=== PATIENT | male | born 1980 | race Caucasian/White ===

== ENCOUNTER 2017-07-12 13:38 | Day surgery (SDC) | END 2017-07-12 18:58 | disposition home or self-care (01) ==

== ENCOUNTER 2018-10-04 05:59 | Day surgery (SDC) | payer OTHER ==
[2018-10-04] VITALS (14 sets, daily range): BP systolic 116–154; BP diastolic 58–92; PULSE 58–102; RESP 12–30; Ht 185.4 cm; Wt 116.7 kg
[~2018-10-04] VITALS: Ht 185.4 cm; Wt 116.7 kg
[2018-10-04] MEDS ORDERED: GABA-528 PO (06:53)
[2018-10-04] MEDS ORDERED: ROPIVACAINE 0.5 % 30 ML VIAL ONE (07:00)
[2018-10-04] MEDS ORDERED: NEOMYC/POLYMYX/BACIT 30 GM OINT ONE (07:01)
[2018-10-04] MEDS ORDERED: POLYMYXIN/BACITRACIN 1L IRRIG ONE (07:01)
--- NOTE | 2018-10-04 07:13 | PREAC ---
Date/Time of Note Date/Time of Note DATE: 10/04/18 TIME: 07:11 Anesthesia Eval and Record Evaluation Time Pre-Procedure Interview DATE: 10/04/18 TIME: 07:11 Age 38 Sex male NPO: 8 hrs Preoperative diagnosis left acl tear Planned procedure left knee acl repair, left knee arthroscopy and meniscectomy Past Medical History Past Medical History: Includes Cardio: HTN Surgery & Anesthesia Issues No known issue Meds Anticoagulation: No Beta Kelvin within 24 hr: No Reason Beta Kelvin not given: Pt. not on B-Kelvin Reported Medications Gabapentin* (Gabapentin*) 800 Mg Tablet, 800 MG PO QID, #90 TAB 10/04/18 Meds reviewed: Yes Allergies Coded Allergies: No Known Drug Allergies (Unverified Allergy, Unknown, 10/04/18) Allergies Reviewed: Yes Labs/Studies Labs Reviewed: Reviewed by anesthesiologist test: N/A Pre-procedure Exam Last vitals Vital Signs Date Temp Pulse Resp B/P (MAP) Pulse Ox O2 O2 Flow FiO2 Time Delivery Rate 10/04/18 98.3 58 18 154/89 97 06:54 (110) 10/04/18 Room Air 06:51 Airway: Adequate mouth opening, Adequate thyromental dist Mallampati: Mallampati I Teeth: Normal Lung: Normal Heart: Normal ASA Physical Status ASA physical status: 2 Emergency: None Planned Anesthetic General/MAC: LMA Nerve block: Femoral (left) Planned Pain Management Single shot nerve block, Parenteral pain med Pre-operative Attestations Prior to commencing anesthesia and surgery, the patient was re-evaluated, there was verification of: *The patient's identity *The results of appropriate recent lab work and preoperative vital signs *The above evaluation not changing prior to induction *Anesthetic plan, risk benefits, alternative and complications discussed with patient/family; questions answered; patient/family understands, accepts and wishes to proceed. KEIRY HARDY Oct 04, 2018 07:13
[2018-10-04] MEDS ORDERED: SEVOFLURANE 15 MIN ONE (07:16)
[2018-10-04] MEDS ORDERED: MIDAZOLAM 1 MG/ML 2 ML INJ ONE (07:16)
[2018-10-04] MEDS ORDERED: BUPIVACAINE 0.5% (SDV) 30 ML INJ ONE (07:18)
[2018-10-04] MEDS ORDERED: PROPOFOL 20 ML ONE (07:20)
[2018-10-04] MEDS ORDERED: ROCURONIUM 50 MG INJ ONE (07:21)
[2018-10-04] MEDS ORDERED: LIDOCAINE 2% (SDV) 5 ML INJ ONE (07:21)
--- NOTE | 2018-10-04 07:42 | HPN ---
Date/Time of Note Date/Time of Note DATE: 10/04/18 TIME: 07:42 Interval H&P Admission Note Pt. seen H&P reviewed: No system changes DARIO SAMPSON MD Oct 04, 2018 07:42
[2018-10-04] MEDS ORDERED: CEFAZOLIN 1 GM INJ ONE (07:54)
[2018-10-04] MEDS ORDERED: DEXAMETHASONE 4 MG/ML 5 ML INJ ONE (08:00)
[2018-10-04] MEDS ORDERED: morphine 2 MG INJ IV PRN (08:00)
[2018-10-04] MEDS ORDERED: KETOROLAC 30 MG INJ IV SCH (08:00)
[2018-10-04] MEDS ORDERED: morphine 10 MG INJ ONE (08:01)
[2018-10-04] MEDS ORDERED: LABETALOL HCL 20MG INJ ONE (09:50)
[2018-10-04] MEDS ORDERED: ONDANSETRON 4 MG INJ ONE (10:06)
[2018-10-04] MEDS ORDERED: NEOSTIGMINE 3 MG/3 ML SYRINGE ONE (10:36)
[2018-10-04] MEDS ORDERED: GLYCOPYRROLATE 0.4 MG INJ ONE (10:36)
--- NOTE | 2018-10-04 10:47 | PAC ---
Date/Time of Note Date/Time of Note DATE: 10/04/18 TIME: 10:47 Post-Anesthesia Notes Post-Anesthesia Note Last documented vital signs Vital Signs Date Temp Pulse Resp B/P (MAP) Pulse Ox O2 O2 Flow FiO2 Time Delivery Rate 10/04/18 98.3 58 18 154/89 97 1047 (110) 10/04/18 Room Air 06:51 Activity: WNL Respiratory function: WNL Cardiovascular function: WNL Mental status: Baseline Pain reasonably controlled: Yes Hydration appropriate: Yes Nausea/Vomiting absent: Yes KEIRY HARDY Oct 04, 2018 10:47
[2018-10-04] MEDS ORDERED: DIPHENHYDRAMINE 50 MG INJ IV PRN (11:00)
[2018-10-04] MEDS ORDERED: LABETALOL HCL 20MG INJ IV PRN (11:00)
[2018-10-04] MEDS ORDERED: ONDANSETRON 4 MG INJ IV PRN (11:00)
[2018-10-04] MEDS ORDERED: METOCLOPRAMIDE 10 MG INJ IV PRN (11:00)
[2018-10-04] MEDS ORDERED: hydrALAzine 20 MG INJ IV PRN (11:00)
[2018-10-04] MEDS ORDERED: EPHEDrine 25 MG/5 ML SYG IV PRN (11:00)
[2018-10-04] MEDS ORDERED: HYDROmorphONE 1 MG/5 ML IV SYRINGE IV PRN ×3 (11:00)
[2018-10-04] MEDS ORDERED: OXYCODONE/ACETAMINOPHEN (5/325) TAB PO PRN ×2 (11:00)
[2018-10-04] MEDS ORDERED: FENTAnyl 50 MCG/ML VIAL IV PRN ×3 (11:00)
[2018-10-04] MEDS ORDERED: MEPERIDINE 25 MG INJ IV PRN (11:00)
[2018-10-04] MEDS ORDERED: KETOROLAC 30 MG INJ IV PRN (11:00)
[2018-10-04] MEDS ORDERED: ALBUTEROL 0.083% (NEB) 2.5 MG/3 ML AMP HHN PRN (11:00)
[2018-10-04] MEDS ORDERED: GABAPENTIN 400 MG CAP PO ONE (12:00)
--- NOTE | 2018-10-04 12:07 | OPR ---
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 Operation/Procedure Performed Left knee arthroscopy with ACL reconstruction with tibialis anterior allograft Left knee arthroscopy with partial lateral meniscectomy Left knee arthroscopy with loose body removal, approximate 1.5 cm Left knee arthroscopy with chondroplasty of the patella femoral compartment and lateral compartment Surgeon Dario Sampson MD Pump Assembler CARLA Harkins Anesthesia Type: general, other (fascia iliacus block) Anesthesiologist: KEIRY HARDY Tourniquet Time: 75 min at 250mmHg Estimated Blood Loss: minimal Transfusion none Specimen None Grafts/Implants Mitek adjustable loop button Mitek bioIntrafix 7-9 Complications none Pt Condition Post Procedure: stable Disposition: PACU Indications Indications The patient is a 38year-old male with a prolonged history of Left knee giving way after playing soccer. He has had continued episodes of instability with catching and clicking over the past several months. The patient has restored their range of motion and is now brought to the operating room for ACL reconstruction, possible partial medial and lateral meniscectomy versus medial and lateral meniscal repair, chondroplasty and debridement. Risk Note: The risks, benefits, and alternatives of surgery were discussed with the patient. The risks included but were not limited to infection, bleeding, damage to vessels and nerves, loss of motion, continued pain, re-tear of the meniscus, deep venous thrombosis, and complications due to anesthesia including nerve injury, myocardial infarction, stroke, , etc. The patient stated understanding of the nature of the surgical procedure and gave written and verbal consent to proceed Procedure Description Patient was met in the preoperative holding area and the correct operative extremity was confirmed with both patient and consent. Patient was given preoperative fascial iliacus block was placed. Patient was brought to the operative theater and placed supine on the operative table. Patient was given general anesthesia and preoperative antibiotics. The left lower extremity was examined under anesthesia. Range of motion was 0 degrees of extension to 135 degrees of flexion. There was no varus or valgus or posterolateral instability. He had no instability to varus or valgus stress at 0 or 30 degrees. He had a 2+ Goldie and drawer with a positive pivot shift The left lower extremity was then prepped and draped in the usual fashion. A tourniquet was placed proximally on the thigh over a bias stockinette. A standard anterolateral parapatellar stab wound was created. The knee joint was entered with a blunt-tipped obturator, followed by the 30-degree video arthroscope. An anteromedial portal was established under arthroscopic control. A routine arthroscopic survey was performed. The suprapatellar pouch was unremarkable. The undersurface of the patella was well-preserved. The patella appeared to track centrally within the trochlear groove. There was grade I chondromalacia under the lateral patella facet. The trochlea no chondromalacia. The medial and lateral gutters were inspected there is no loose body seen in the medial or lateral gutter.. There was no hypertrophied plica. The popliteal hiatus was entered and was unremarkable. The lateral compartment was entered. The lateral femoral condyle exhibited grade 2/3 chondromalacia and the lateral tibial plateau showed grade 2/3 chondromalacia. There was no chondromalacia adjacent to the notch. Lateral meniscus was shown to be torn at the mid body extending to the posterior horn. It was torn in a way that had complete degeneration and shredding of the meniscus and was essentially a segmental tear with a complete displacement from the capsule at the horn to the mid body that was found to be completely degenerative and unrepairable. The intercondylar notch was visualized. There was a large loose body found in the medial compartment at the border of the intercondylar notch that was removed and measuring approximately 1.5 cm. The anterior cruciate ligament was torn from its femoral origin. Posteromedially there was no loose body seen. The posterior cruciate ligament was visualized and appeared intact although slightly strained. The medial compartment was entered. The articular surfaces of the medial compartment was shown to have no evidence of chondromalacia and the meniscus was shown to be stable and intact. Attention was turned to reconstruction of the anterior cruciate ligament. Following exsanguination with an Esmarch bandage the tourniquet was inflated to 250 mm of mercury. Using a motorized shaver a limited notchplasty was performed, exposing the lateral wall and roof of the notch, identifying the [id number] position. The stump of the anterior cruciate ligament was debrided. A Vector guide was placed intra-articularly between the tibial spines in line with the anterior horn of the lateral meniscus. A Chase wire was then inserted into the knee through a 2 cm incision made over the proximal medial tibia. The incision was deepened through the subcutaneous tissue with subperiosteal dissection achieved. Bleeding points were coagulated with the Bovie electrocautery. The tibialis anterior allograft was prepped to create a size 9 graft on both the femoral and tibial side. Tibial drilling was then carried out first with a 6.5 mm followed by a 9 mm cylindrical reamer with the guide set at 55 degrees. Via an accessory medial portal, the Beath pin was drilled out the femoral cortex and skin with the knee in hyperflexion. The femoral tunnel was then created, with a spade tip guidewire, Depth-gauging confirmed a condyle length of 38 mm. Then reaming proceeded, with a 9 mm drill to a depth of 30 mm. A adjustable rigid loop Mitek button was selected. The graft was inserted intra -articularly and the Mitek button was deployed. The graft was cycled for 20 cycles with 25 pounds of force to pre-load the graft. Tibial fixation was carried out using a 7-9 Bio-IntraFix in 10 degrees of flexion with a posterior drawer. At the completion of surgery the patient had a firm stable Goldie. There was a negative pivot shift. The patient had a 0 firm Goldie and a negative pivot shift. There was no evidence for any roof or lateral wall impingement. The tourniquet was deflated at 75 minutes. The knee was irrigated with two liters of lactated Ringer's solution. Excess fluid was drained. The tibial wounds were then copiously irrigated with bacitracin solution and closed in layers with #0, #2-0 and #3-0 Vicryl. The skin was reapproximated with 3-0 then #4-0 Monocryl. The knee was injected with 20 cc of 0.5% plain ropivacaine. A dry sterile dressing was applied, followed by a bulky bandage and abbie wrap, insuring no contact with the skin. A postoperative TROM brace was applied locked in full extension. The patient was awakened in the Operating Room and transported to the Recovery Room in satisfactory condition. The patient appeared to tolerate the procedure well. At the completion of surgery the patient had soft compartments, palpable pulses, and brisk capillary refill. There were no complications noted. Patient begin partial weightbearing this coming couple days. With the brace locked in extension he will begin aspirin 81 mg Po qday starting tomorrow. Pump Assembler surgeon: An hearing aid assistant registered nurse cutter first was needed for this case to assist with positioning of the limb during repair of the injury as well as assisting in fixation of the ACL and meniscus while holding the arthroscope. Without a qualified [employer] BROKER in this case the case would be significantly more complex and longer. DARIO SAMPSON MD Oct 04, 2018 12:07
== END 2018-10-04 12:32 | disposition home or self-care (01) ==
LOC: SDS 05:59
PROVIDERS: ATTEND Orthopaedic Surgery
DX: S83.512D Sprain of anterior cruciate ligament of left knee, subsequent encounter (principal); S83.282D Other tear of lateral meniscus, current injury, left knee, subsequent encounter; X58.XXXD Exposure to other specified factors, subsequent encounter; M94.262 Chondromalacia, left knee; M23.42 Loose body in knee, left knee; I10 Essential (primary) hypertension
CPT/HCPCS: 29881; 29888; 82306; C1713; C1762; J0690; J1100; J1885; J2250; J2270; J2405; J2710; J2795; J3010; Z7512; Z7610